=== PATIENT | female | born 1945 | race Caucasian/White ===

== ENCOUNTER 2018-10-19 17:48 | Emergency (ER) | payer OTHER, MEDICARE ==
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
[2018-10-19 22:42] VITALS: BP 165/99
== END 2018-10-19 22:40 | disposition home or self-care (01) ==
LOC: ER 17:48
DX: S16.1XXA Strain of muscle, fascia and tendon at neck level, initial encounter (principal); M54.9 Dorsalgia, unspecified; V44.5XXA Car driver injured in collision with heavy transport vehicle or bus in traffic accident, initial encounter
CPT/HCPCS: 72070; 72110; 72125; 99284